=== PATIENT | male | born 1960 | race Hispanic/Latino ===

== ENCOUNTER 2019-10-12 19:10 | Emergency (ER) | payer OTHER ==
[~2019-10-12] VITALS: Ht 167.6 cm; Wt 117.9 kg
[~2019-10-12 19:10] MED LIST: DIOVAN HCT 1601 EACH PO; GABAPENTIN100 MG; NAPROXEN250 MG PO
--- OUTSIDE RECORDS SUMMARY | 2019-10-12 19:13 | XMS REPORT ---
[facility] Unknown Phone Unavailable Care Team Providers Care Label Tacker Name Role Phone RENETTA BORJAS Unavailable Unavailable Payers Payer Name Policy Type Policy Number Effective Date Expiration Date Problems This patient has no known problems. Allergies, Adverse Reactions, Alerts Allergy Name Allergy Type Status Severity Reaction(s) Onset Date Inactive Date Treating Clinician Comments No Known Allergies DA Active U 2019-07-20 00:00:00 ANTIBIOTIC DA Active [facility] 2019-07-20 00:00:00 No Known Allergies DA Active U 2016-11-05 00:00:00 Medications This patient has no known medications. Encounters Start Date/Time End Date/Time Encounter Type Admission Type Attending [facility] Care Department Encounter ID 2019-07-21 00:00:00 2019-07-21 00:00:00 Outpatient [facility] [id number] 2019-07-21 00:00:00 2019-07-21 00:00:00 Outpatient [facility] [id number] 2019-06-15 14:08:20 2019-06-15 14:08:20 Outpatient [facility] [id number] 2019 13:09:14 2019 13:09:14 Outpatient [facility] [id number] 2019-04-19 00:00:00 2019-04-19 00:00:00 Outpatient [facility] [id number] 2019-03-24 12:53:57 2019-03-24 12:53:57 Outpatient [facility] [id number] 2019-03-07 09:44:21 2019-03-07 09:44:21 Outpatient [facility] [id number] 2019-02-18 11:02:01 2019-02-18 11:02:01 Outpatient [facility] [id number] 2019-01-27 13:12:23 2019-01-27 13:12:23 Outpatient [facility] [id number] 2018-12-09 11:51:06 2018-12-09 11:51:06 Outpatient [facility] [id number] 2018-12-09 10:52:40 2018-12-09 10:52:40 Outpatient [facility] [id number] 2018-12-09 09:37:40 2018-12-09 09:37:40 Outpatient [facility] [id number] 2018-11-18 13:22:40 2018-11-18 13:22:40 Outpatient [facility] [id number] 2018-10-27 00:00:00 2018-10-27 00:00:00 Outpatient [facility] [id number] 2018-10-25 12:56:20 2018-10-25 12:56:20 Outpatient [facility] [id number] 2018-10-25 09:34:35 2018-10-25 09:34:35 Outpatient [facility] [id number] 2018-10-22 00:00:00 2018-10-22 00:00:00 Outpatient [facility] [id number] 2018-10-15 09:14:43 2018-10-15 09:14:43 Outpatient [facility] [id number] 2018-10-15 08:21:56 2018-10-15 08:21:56 Outpatient [facility] [id number] 2018-07-20 00:00:00 2018-07-20 00:00:00 Outpatient [facility] [id number] 2018-06-29 00:00:00 2018-06-29 00:00:00 Outpatient [facility] [id number] 2018-06-23 13:08:47 2018-06-23 13:08:47 Outpatient [facility] [id number] 2018-06-01 13:48:07 2018-06-01 13:48:07 Outpatient [facility] [id number] 2018-05-07 00:00:00 2018-05-07 00:00:00 Outpatient [facility] [id number] 2018-04-06 15:01:27 2018-04-06 15:01:27 Outpatient [facility] [id number] 2018-03-01 15:41:05 2018-03-01 15:41:05 Outpatient [facility] [id number] 2018-01-21 00:00:00 2018-01-21 00:00:00 Outpatient [facility] [id number] 2018-01-12 15:24:27 2018-01-12 15:24:27 Outpatient [facility] [id number] 2017-12-02 14:53:34 2017-12-02 14:53:34 Outpatient [facility] [id number] 2017-12-02 11:36:56 2017-12-02 11:36:56 Outpatient [facility] [id number] 2017-12-01 15:21:10 2017-12-01 15:21:10 Outpatient [facility] [id number] 2017-11-02 10:16:35 2017-11-02 10:16:35 Outpatient [facility] [id number] 2017-11-02 10:07:31 2017-11-02 10:07:31 Outpatient [facility] [id number] 2017-10-29 15:17:09 2017-10-29 15:17:09 Outpatient [facility] [id number] 2017-10-20 11:55:53 2017-10-20 11:55:53 Outpatient [facility] [id number] 2017-09-09 08:07:10 2017-09-09 08:07:10 Outpatient [facility] [id number] 2017-08-18 14:58:37 2017-08-18 14:58:37 Outpatient [facility] [id number] 2017-07-30 07:41:34 2017-07-30 07:41:34 Outpatient [facility] [id number] 2017-07-21 13:02:10 2017-07-21 13:02:10 Outpatient [facility] [id number] 2017-07-16 08:50:05 2017-07-16 08:50:05 Outpatient [facility] [id number] 2017-07-16 00:00:00 2017-07-16 00:00:00 Outpatient [facility] [id number] 2017-07-15 15:33:33 2017-07-15 15:33:33 Outpatient [facility] [id number] 2017-06-30 00:00:00 2017-06-30 00:00:00 Outpatient [facility] [id number] 2017-06-18 00:00:00 2017-06-18 00:00:00 Outpatient [facility] [id number] 2017-06-17 00:00:00 2017-06-17 00:00:00 Outpatient [facility] [id number] 2017 07:47:41 2017 07:47:41 Outpatient [facility] [id number] 2017 00:00:00 2017 00:00:00 Outpatient [facility] [id number] 2017-04-28 10:37:05 2017-04-28 10:37:05 Outpatient [facility] [id number] 2017-04-17 09:23:17 2017-04-17 09:23:17 Outpatient [facility] [id number] 2017-04-09 00:00:00 2017-04-09 00:00:00 Outpatient [facility] [id number] 2017-04-08 00:00:00 2017-04-08 00:00:00 Outpatient [facility] [id number] 2017-03-18 00:00:00 2017-03-18 00:00:00 Outpatient [facility] [id number] 2017-03-03 12:01:11 2017-03-03 12:01:11 Outpatient [facility] [id number] 2017-03-03 10:55:52 2017-03-03 10:55:52 Outpatient [facility] [id number] 2017-01-29 13:52:18 2017-01-29 13:52:18 Outpatient [facility] [id number] 2017-01-22 13:19:03 2017-01-22 13:19:03 Outpatient [facility] [id number] 2017-01-21 09:55:36 2017-01-21 09:55:36 Outpatient [facility] [id number] 2017-01-13 15:07:06 2017-01-13 15:07:06 Emergency [facility] [id number] Results Test Description Test Time Test Comments Text Results Atomic Results Result Comments GLUBED 2019-06-26 13:03:00 GLUBED (test code=GLUBED) 145 mg/dL 74-106 Performed by certified tool grinder operator surface at [facility] [id number] 06:05:00* Test Item Value Reference Range Comments GLUBED (test code=GLUBED) 138 mg/dL 74-106 Performed by certified tool grinder operator surface at [facility] BASIC METABOLIC [id number] 02:47:00* Test Item Value Reference Range Comments SODIUM (test code=NA) 143 mmol/L 136-145 POTASSIUM (test code=K) 3.5 mmol/L 3.5-5.1 CHLORIDE (test code=CL) 105.0 mmol/L 98-107 CARBON DIOXIDE (test code=CO2) 31.0 mmol/L 21-32 ANION GAP (test code=GAP) 10.5 10-20 GLUCOSE (test code=GLU) 127 mg/dL 74-106 BLOOD UREA NITROGEN (test code=BUN) 16 mg/dL 7-18 GLOMERULAR FILTRATION RATE (test code=GFR) > 60 mL/min >=60 Estimated GFR by using Modified MDRD formula.Chronic kidney disease is defined as either kidney damageor GFR <60 mL/min/1.73 m2 for >3 months. CREATININE (test code=CREAT) 0.90 mg/dL 0.7-1.3 BUN/CREATININE RATIO (test code=BUN/CREA) 17.1 10-20 CALCIUM (test code=CA) 9.0 mg/dL 8.5-10.1 BASIC METABOLIC [id number] 02:44:00* Test Item Value Reference Range Comments SODIUM (test code=NA) 143 mmol/L 136-145 POTASSIUM (test code=K) 3.5 mmol/L 3.5-5.1 CHLORIDE (test code=CL) 105.0 mmol/L 98-107 CARBON DIOXIDE (test code=CO2) mmol/L 21-32 ANION GAP (test code=GAP) 10-20 GLUCOSE (test code=GLU) mg/dL 74-106 BLOOD UREA NITROGEN (test code=BUN) mg/dL 7-18 GLOMERULAR FILTRATION RATE (test code=GFR) mL/min >=60 CREATININE (test code=CREAT) mg/dL 0.7-1.3 BUN/CREATININE RATIO (test code=BUN/CREA) 10-20 CALCIUM (test code=CA) mg/dL 8.5-10.1 CBC W/AUTO [id number] 02:38:00* Test Item Value Reference Range Comments WHITE BLOOD CELL (test code=WBC) 11.0 K/mm3 4.5-12.5 RED BLOOD CELL (test code=RBC) 4.87 mill/mm3 4.0-5.8 HEMOGLOBIN (test code=HGB) 13.9 gram/dL 13.0-17.5 HEMATOCRIT (test code=HCT) 45.4 % 42.0-52.0 MEAN CELL VOLUME (test code=MCV) 93.2 fL 80-98 MEAN CELL HGB (test code=MCH) 28.5 picogram 27.0-33.0 MEAN CELL HGB CONCETRATION (test code=MCHC) 30.6 gram/dL 33.0-36.0 RED CELL DISTRIBUTION WIDTH (test code=RDW) 13.8 % 11.6-16.2 RED CELL DISTRIBUTION WIDTH SD (test code=RDW-SD) 47.5 fL 37.0-51.0 PLATELET COUNT (test code=PLT) 251 K/mm3 150-450 MEAN PLATELET VOLUME (test code=MPV) 11.1 fL 6.7-11.0 NEUTROPHIL % (test code=NT%) 66.0 % 39.0-69.0 IMMATURE GRANULOCYTE % (test code=IG%) 0.5 % 0.0-5.0 LYMPHOCYTE % (test code=LY%) 24.6 % 25.0-55.0 MONOCYTE % (test code=MO%) 5.8 % 0.0-10.0 EOSINOPHIL % (test code=EO%) 2.7 % 0.0-5.0 BASOPHIL % (test code=BA%) 0.4 % 0.0-1.0 NUCLEATED RBC % (test code=NRBC%) 0.0 % 0-0 NEUTROPHIL # (test code=NT#) 7.27 K/mm3 1.8-7.7 IMMATURE GRANULOCYTE # (test code=IG#) 0.05 x10 3/uL 0-0.03 LYMPHOCYTE # (test code=LY#) 2.71 K/mm3 1.0-5.0 MONOCYTE # (test code=MO#) 0.64 K/mm3 0-0.8 EOSINOPHIL # (test code=EO#) 0.30 K/mm3 0.0-0.5 BASOPHIL # (test code=BA#) 0.04 K/mm3 0.0-0.2 NUCLEATED RBC # (test code=NRBC#) 0.00 K/mm3 0.0-0.1 MANUAL DIFF REQUIRED (test code=MDIFF) NO CBC W/AUTO [id number] 02:37:00* Test Item Value Reference Range Comments WHITE BLOOD CELL (test code=WBC) K/mm3 4.5-12.5 RED BLOOD CELL (test code=RBC) mill/mm3 4.0-5.8 HEMOGLOBIN (test code=HGB) 13.9 gram/dL 13.0-17.5 HEMATOCRIT (test code=HCT) 45.4 % 42.0-52.0 MEAN CELL VOLUME (test code=MCV) fL 80-98 MEAN CELL HGB (test code=MCH) picogram 27.0-33.0 MEAN CELL HGB CONCETRATION (test code=MCHC) gram/dL 33.0-36.0 RED CELL DISTRIBUTION WIDTH (test code=RDW) % 11.6-16.2 RED CELL DISTRIBUTION WIDTH SD (test code=RDW-SD) fL 37.0-51.0 PLATELET COUNT (test code=PLT) K/mm3 150-450 MEAN PLATELET VOLUME (test code=MPV) fL 6.7-11.0 NEUTROPHIL % (test code=NT%) % 39.0-69.0 IMMATURE GRANULOCYTE % (test code=IG%) % 0.0-5.0 LYMPHOCYTE % (test code=LY%) % 25.0-55.0 MONOCYTE % (test code=MO%) % 0.0-10.0 EOSINOPHIL % (test code=EO%) % 0.0-5.0 BASOPHIL % (test code=BA%) % 0.0-1.0 NEUTROPHIL # (test code=NT#) K/mm3 1.8-7.7 LYMPHOCYTE # (test code=LY#) K/mm3 1.0-5.0 MONOCYTE # (test code=MO#) K/mm3 0-0.8 EOSINOPHIL # (test code=EO#) K/mm3 0.0-0.5 BASOPHIL # (test code=BA#) K/mm3 0.0-0.2 [id number] 21:08:00* Test Item Value Reference Range Comments GLUBED (test code=GLUBED) 121 mg/dL 74-106 Performed by certified tool grinder operator surface at [facility] [id number] 17:49:00* Test Item Value Reference Range Comments GLUBED (test code=GLUBED) 102 mg/dL 74-106 Performed by certified tool grinder operator surface at [facility] [id number] 13:41:00* Test Item Value Reference Range Comments GLUBED (test code=GLUBED) 138 mg/dL 74-106 Performed by certified tool grinder operator surface at [facility] LACTIC [id number] 12:28:00* Test Item Value Reference Range Comments LACTIC ACID (test code=LACT) 1.7 mmol/L 0.4-1.9 [id number] 06:42:00* Test Item Value Reference Range Comments GLUBED (test code=GLUBED) 133 mg/dL 74-106 Performed by certified tool grinder operator surface at [facility] BASIC METABOLIC [id number] 02:33:00* Test Item Value Reference Range Comments SODIUM (test code=NA) 145 mmol/L 136-145 POTASSIUM (test code=K) 3.6 mmol/L 3.5-5.1 CHLORIDE (test code=CL) 105.0 mmol/L 98-107 CARBON DIOXIDE (test code=CO2) 33.0 mmol/L 21-32 ANION GAP (test code=GAP) 10.6 10-20 GLUCOSE (test code=GLU) 134 mg/dL 74-106 BLOOD UREA NITROGEN (test code=BUN) 16 mg/dL 7-18 GLOMERULAR FILTRATION RATE (test code=GFR) > 60 mL/min >=60 Estimated GFR by using Modified MDRD formula.Chronic kidney disease is defined as either kidney damageor GFR <60 mL/min/1.73 m2 for >3 months. CREATININE (test code=CREAT) 1.00 mg/dL 0.7-1.3 BUN/CREATININE RATIO (test code=BUN/CREA) 16.1 10-20 CALCIUM (test code=CA) 8.7 mg/dL 8.5-10.1 CBC W/AUTO [id number] 01:52:00* Test Item Value Reference Range Comments WHITE BLOOD CELL (test code=WBC) 10.7 K/mm3 4.5-12.5 RED BLOOD CELL (test code=RBC) 4.92 mill/mm3 4.0-5.8 HEMOGLOBIN (test code=HGB) 14.2 gram/dL 13.0-17.5 HEMATOCRIT (test code=HCT) 45.1 % 42.0-52.0 MEAN CELL VOLUME (test code=MCV) 91.7 fL 80-98 MEAN CELL HGB (test code=MCH) 28.9 picogram 27.0-33.0 MEAN CELL HGB CONCETRATION (test code=MCHC) 31.5 gram/dL 33.0-36.0 RED CELL DISTRIBUTION WIDTH (test code=RDW) 14.1 % 11.6-16.2 RED CELL DISTRIBUTION WIDTH SD (test code=RDW-SD) 47.6 fL 37.0-51.0 PLATELET COUNT (test code=PLT) 255 K/mm3 150-450 MEAN PLATELET VOLUME (test code=MPV) 11.1 fL 6.7-11.0 NEUTROPHIL % (test code=NT%) 63.0 % 39.0-69.0 IMMATURE GRANULOCYTE % (test code=IG%) 0.5 % 0.0-5.0 LYMPHOCYTE % (test code=LY%) 25.8 % 25.0-55.0 MONOCYTE % (test code=MO%) 8.2 % 0.0-10.0 EOSINOPHIL % (test code=EO%) 2.1 % 0.0-5.0 BASOPHIL % (test code=BA%) 0.4 % 0.0-1.0 NUCLEATED RBC % (test code=NRBC%) 0.0 % 0-0 NEUTROPHIL # (test code=NT#) 6.76 K/mm3 1.8-7.7 IMMATURE GRANULOCYTE # (test code=IG#) 0.05 x10 3/uL 0-0.03 LYMPHOCYTE # (test code=LY#) 2.77 K/mm3 1.0-5.0 MONOCYTE # (test code=MO#) 0.88 K/mm3 0-0.8 EOSINOPHIL # (test code=EO#) 0.22 K/mm3 0.0-0.5 BASOPHIL # (test code=BA#) 0.04 K/mm3 0.0-0.2 NUCLEATED RBC # (test code=NRBC#) 0.00 K/mm3 0.0-0.1 MANUAL DIFF REQUIRED (test code=MDIFF) NO [id number] 21:32:00* Test Item Value Reference Range Comments GLUBED (test code=GLUBED) 198 mg/dL 74-106 Performed by certified tool grinder operator surface at [facility] LACTIC [id number] 19:29:00* Test Item Value Reference Range Comments LACTIC ACID (test code=LACT) 3.1 mmol/L 0.4-1.9 Results called to [id number] by [email or web address] 06/24/19 1929Critical results verified and read back by Nurse? Y [id number] 19:15:00* Test Item Value Reference Range Comments GLUBED (test code=GLUBED) 229 mg/dL 74-106 Performed by certified tool grinder operator surface at [facility] LACTIC [id number] 17:06:00* Test Item Value Reference Range Comments LACTIC ACID (test code=LACT) 2.7 mmol/L 0.4-1.9 Results called to [id number] by [email or web address] 06/24/19 1706Critical results verified and read back by Nurse? Y [id number] 08:06:00* Test Item Value Reference Range Comments GLUBED (test code=GLUBED) 129 mg/dL 74-106 Performed by certified tool grinder operator surface at [facility] COMPREHENSIVE METABOLIC [id number] 03:57:00* Test Item Value Reference Range Comments SODIUM (test code=NA) 141 mmol/L 136-145 POTASSIUM (test code=K) 3.7 mmol/L 3.5-5.1 CHLORIDE (test code=CL) 103.0 mmol/L 98-107 CARBON DIOXIDE (test code=CO2) 32.0 mmol/L 21-32 ANION GAP (test code=GAP) 9.7 10-20 GLUCOSE (test code=GLU) 124 mg/dL 74-106 BLOOD UREA NITROGEN (test code=BUN) 21 mg/dL 7-18 GLOMERULAR FILTRATION RATE (test code=GFR) > 60 mL/min >=60 Estimated GFR by using Modified MDRD formula.Chronic kidney disease is defined as either kidney damageor GFR <60 mL/min/1.73 m2 for >3 months. CREATININE (test code=CREAT) 1.00 mg/dL 0.7-1.3 BUN/CREATININE RATIO (test code=BUN/CREA) 21.0 10-20 TOTAL PROTEIN (test code=PROT) 7.2 gram/dL 6.4-8.2 ALBUMIN (test code=ALB) 3.1 g/dL 3.4-5.0 GLOBULIN (test code=GLOB) 4.1 gram/dL 2.7-4.2 ALBUMIN/GLOBULIN RATIO (test code=A/G) 0.8 0.75-1.50 CALCIUM (test code=CA) 8.9 mg/dL 8.5-10.1 BILIRUBIN TOTAL (test code=BILT) 0.40 mg/dL 0.0-1.0 SGOT/AST (test code=AST) 36 IUnit/L 15-37 SGPT/ALT (test code=ALT) 52 IUnit/L 12-78 ALKALINE PHOSPHATASE TOTAL (test code=ALKP) 78 IUnit/L 45-117 Note change in reference range due to change in reagent. [id number] 03:45:00* Test Item Value Reference Range Comments MAGNESIUM (test code=MAG) 2.1 mg/dL 1.8-2.4 COMPREHENSIVE METABOLIC [id number] 03:44:00* Test Item Value Reference Range Comments SODIUM (test code=NA) 141 mmol/L 136-145 POTASSIUM (test code=K) 3.7 mmol/L 3.5-5.1 CHLORIDE (test code=CL) 103.0 mmol/L 98-107 CARBON DIOXIDE (test code=CO2) mmol/L 21-32 ANION GAP (test code=GAP) 10-20 GLUCOSE (test code=GLU) mg/dL 74-106 BLOOD UREA NITROGEN (test code=BUN) mg/dL 7-18 GLOMERULAR FILTRATION RATE (test code=GFR) mL/min >=60 CREATININE (test code=CREAT) mg/dL 0.7-1.3 BUN/CREATININE RATIO (test code=BUN/CREA) 10-20 TOTAL PROTEIN (test code=PROT) gram/dL 6.4-8.2 ALBUMIN (test code=ALB) g/dL 3.4-5.0 GLOBULIN (test code=GLOB) gram/dL 2.7-4.2 ALBUMIN/GLOBULIN RATIO (test code=A/G) 0.75-1.50 CALCIUM (test code=CA) mg/dL 8.5-10.1 BILIRUBIN TOTAL (test code=BILT) mg/dL 0.0-1.0 SGOT/AST (test code=AST) IUnit/L 15-37 SGPT/ALT (test code=ALT) IUnit/L 12-78 ALKALINE PHOSPHATASE TOTAL (test code=ALKP) IUnit/L 45-117 CBC W/AUTO [id number] 03:20:00* Test Item Value Reference Range Comments WHITE BLOOD CELL (test code=WBC) 9.2 K/mm3 4.5-12.5 RED BLOOD CELL (test code=RBC) 5.03 mill/mm3 4.0-5.8 HEMOGLOBIN (test code=HGB) 14.7 gram/dL 13.0-17.5 HEMATOCRIT (test code=HCT) 46.2 % 42.0-52.0 MEAN CELL VOLUME (test code=MCV) 91.8 fL 80-98 MEAN CELL HGB (test code=MCH) 29.2 picogram 27.0-33.0 MEAN CELL HGB CONCETRATION (test code=MCHC) 31.8 gram/dL 33.0-36.0 RED CELL DISTRIBUTION WIDTH (test code=RDW) 14.2 % 11.6-16.2 RED CELL DISTRIBUTION WIDTH SD (test code=RDW-SD) 47.6 fL 37.0-51.0 PLATELET COUNT (test code=PLT) 251 K/mm3 150-450 MEAN PLATELET VOLUME (test code=MPV) 11.3 fL 6.7-11.0 NEUTROPHIL % (test code=NT%) 60.6 % 39.0-69.0 IMMATURE GRANULOCYTE % (test code=IG%) 0.5 % 0.0-5.0 LYMPHOCYTE % (test code=LY%) 27.5 % 25.0-55.0 MONOCYTE % (test code=MO%) 7.6 % 0.0-10.0 EOSINOPHIL % (test code=EO%) 3.4 % 0.0-5.0 BASOPHIL % (test code=BA%) 0.4 % 0.0-1.0 NUCLEATED RBC % (test code=NRBC%) 0.0 % 0-0 NEUTROPHIL # (test code=NT#) 5.57 K/mm3 1.8-7.7 IMMATURE GRANULOCYTE # (test code=IG#) 0.05 x10 3/uL 0-0.03 LYMPHOCYTE # (test code=LY#) 2.53 K/mm3 1.0-5.0 MONOCYTE # (test code=MO#) 0.70 K/mm3 0-0.8 EOSINOPHIL # (test code=EO#) 0.31 K/mm3 0.0-0.5 BASOPHIL # (test code=BA#) 0.04 K/mm3 0.0-0.2 NUCLEATED RBC # (test code=NRBC#) 0.00 K/mm3 0.0-0.1 MANUAL DIFF REQUIRED (test code=MDIFF) NO [id number] 20:27:00* Test Item Value Reference Range Comments GLUBED (test code=GLUBED) 243 mg/dL 74-106 Performed by certified tool grinder operator surface at [facility] LACTIC [id number] 19:50:00* Test Item Value Reference Range Comments LACTIC ACID (test code=LACT) 2.6 mmol/L 0.4-1.9 Results called to [id number] by V.[email or web address] 06/23/191947Critical results verified and read back by Nurse? Y [id number] 19:38:00* Test Item Value Reference Range Comments GLYCOSYLATED HEMOGLOBIN (HA1C) (test code=GLYHGB) 7.5 % HbA1 4.8-6.0 ESTIMATED AVERAGE GLUCOSE (test code=EAG) 169 MG/DL BASIC METABOLIC [id number] 11:59:00* Test Item Value Reference Range Comments SODIUM (test code=NA) 142 mmol/L 136-145 POTASSIUM (test code=K) 3.5 mmol/L 3.5-5.1 CHLORIDE (test code=CL) 103.0 mmol/L 98-107 CARBON DIOXIDE (test code=CO2) 35.0 mmol/L 21-32 ANION GAP (test code=GAP) 7.5 10-20 GLUCOSE (test code=GLU) 170 mg/dL 74-106 BLOOD UREA NITROGEN (test code=BUN) 20 mg/dL 7-18 GLOMERULAR FILTRATION RATE (test code=GFR) > 60 mL/min >=60 Estimated GFR by using Modified MDRD formula.Chronic kidney disease is defined as either kidney damageor GFR <60 mL/min/1.73 m2 for >3 months. CREATININE (test code=CREAT) 1.00 mg/dL 0.7-1.3 BUN/CREATININE RATIO (test code=BUN/CREA) 19.4 10-20 CALCIUM (test code=CA) 8.7 mg/dL 8.5-10.1 CBC W/AUTO [id number] 11:09:00* Test Item Value Reference Range Comments WHITE BLOOD CELL (test code=WBC) 10.3 K/mm3 4.5-12.5 RED BLOOD CELL (test code=RBC) 5.03 mill/mm3 4.0-5.8 HEMOGLOBIN (test code=HGB) 14.4 gram/dL 13.0-17.5 HEMATOCRIT (test code=HCT) 47.0 % 42.0-52.0 MEAN CELL VOLUME (test code=MCV) 93.4 fL 80-98 MEAN CELL HGB (test code=MCH) 28.6 picogram 27.0-33.0 MEAN CELL HGB CONCETRATION (test code=MCHC) 30.6 gram/dL 33.0-36.0 RED CELL DISTRIBUTION WIDTH (test code=RDW) 14.3 % 11.6-16.2 RED CELL DISTRIBUTION WIDTH SD (test code=RDW-SD) 48.1 fL 37.0-51.0 PLATELET COUNT (test code=PLT) 255 K/mm3 150-450 MEAN PLATELET VOLUME (test code=MPV) 10.9 fL 6.7-11.0 NEUTROPHIL % (test code=NT%) 67.3 % 39.0-69.0 IMMATURE GRANULOCYTE % (test code=IG%) 0.6 % 0.0-5.0 LYMPHOCYTE % (test code=LY%) 22.8 % 25.0-55.0 MONOCYTE % (test code=MO%) 6.2 % 0.0-10.0 EOSINOPHIL % (test code=EO%) 2.6 % 0.0-5.0 BASOPHIL % (test code=BA%) 0.5 % 0.0-1.0 NUCLEATED RBC % (test code=NRBC%) 0.0 % 0-0 NEUTROPHIL # (test code=NT#) 6.91 K/mm3 1.8-7.7 IMMATURE GRANULOCYTE # (test code=IG#) 0.06 x10 3/uL 0-0.03 LYMPHOCYTE # (test code=LY#) 2.34 K/mm3 1.0-5.0 MONOCYTE # (test code=MO#) 0.64 K/mm3 0-0.8 EOSINOPHIL # (test code=EO#) 0.27 K/mm3 0.0-0.5 BASOPHIL # (test code=BA#) 0.05 K/mm3 0.0-0.2 NUCLEATED RBC # (test code=NRBC#) 0.00 K/mm3 0.0-0.1 MANUAL DIFF REQUIRED (test code=MDIFF) NO CBC W/AUTO [id number] 11:08:00* Test Item Value Reference Range Comments WHITE BLOOD CELL (test code=WBC) K/mm3 4.5-12.5 RED BLOOD CELL (test code=RBC) mill/mm3 4.0-5.8 HEMOGLOBIN (test code=HGB) 14.4 gram/dL 13.0-17.5 HEMATOCRIT (test code=HCT) 47.0 % 42.0-52.0 MEAN CELL VOLUME (test code=MCV) fL 80-98 MEAN CELL HGB (test code=MCH) picogram 27.0-33.0 MEAN CELL HGB CONCETRATION (test code=MCHC) gram/dL 33.0-36.0 RED CELL DISTRIBUTION WIDTH (test code=RDW) % 11.6-16.2 RED CELL DISTRIBUTION WIDTH SD (test code=RDW-SD) fL 37.0-51.0 PLATELET COUNT (test code=PLT) K/mm3 150-450 MEAN PLATELET VOLUME (test code=MPV) fL 6.7-11.0 NEUTROPHIL % (test code=NT%) % 39.0-69.0 IMMATURE GRANULOCYTE % (test code=IG%) % 0.0-5.0 LYMPHOCYTE % (test code=LY%) % 25.0-55.0 MONOCYTE % (test code=MO%) % 0.0-10.0 EOSINOPHIL % (test code=EO%) % 0.0-5.0 BASOPHIL % (test code=BA%) % 0.0-1.0 NEUTROPHIL # (test code=NT#) K/mm3 1.8-7.7 LYMPHOCYTE # (test code=LY#) K/mm3 1.0-5.0 MONOCYTE # (test code=MO#) K/mm3 0-0.8 EOSINOPHIL # (test code=EO#) K/mm3 0.0-0.5 BASOPHIL # (test code=BA#) K/mm3 0.0-0.2 LACTIC [id number] 08:19:00* Test Item Value Reference Range Comments LACTIC ACID (test code=LACT) 2.5 mmol/L 0.4-1.9 Results called to [id number] by [email or web address] 06/22/19 0819Critical results verified and read back by Nurse? Y [id number] 05:20:00* Test Item Value Reference Range Comments TROPONIN-I (test code=TROPI) <0.015 ng/mL 0-0.045 COMMENTS TO [employer]: COLLECT 3 HOURS AFTER PREVIOUS [id number] 03:27:00* Test Item Value Reference Range Comments MAGNESIUM (test code=MAG) 2.0 mg/dL 1.8-2.4 [id number] 02:48:00* Test Item Value Reference Range Comments TROPONIN-I (test code=TROPI) <0.015 ng/mL 0-0.045 COMMENTS TO [employer]: COLLECT 3 HOURS AFTER PREVIOUS SAMPLEB-TYPE NATRIURETIC [id number] 00:49:00* Test Item Value Reference Range Comments B-TYPE NATRIURETIC PEPTIDE (test code=BNP) 129.56 pgram/mL 0-100 LACTIC [id number] 00:31:00* Test Item Value Reference Range Comments LACTIC ACID (test code=LACT) 3.3 mmol/L 0.4-1.9 Results called to [id number] by V.[email or web address] 06/22/19 0031Critical results verified and read back by Nurse? Y LIPID PROFILE (CORONARY RISK)2019-06-21 21:43:00* Test Item Value Reference Range Comments TRIGLYCERIDES (test code=TRIG) 171 mg/dL 20-150 CHOLESTEROL (test code=CHOL) 191 mg/dL 0-200 CHOLESTEROL/HDL RATIO (test code=CHOLHDL) 4.0 RATIO 0-4.9 RISK ASSOCIATED WITH CHOL/HDL RATIOS: Risk Male Female1/2 AVERAGE 3.43 3.27AVERAGE 4.97 4.442X AVERAGE 9.55 7.053X AVERAGE 23.39 11.04 REFERENCE VALUE IS RELATED TO RISK LEVELS ASRECOMMENDED BY THE [facility]. HEART, LUNG, AND BLOOD INST. HDL CHOLESTEROL (test code=HDL) 41 mg/dL 40-60 LIPOPROTEIN LDL (test code=LDL) 136 mg/dL 100-129 RN PERSONNEL, CONTACT PHYSICIAN IMMEDIATELY IF THIS IS A STROKE, AMI OR CAROTID STENOSIS PATIENT WHEN THE LDL >100 (1ST OCCURENCE, THIS ADMISSION) Reference Interval: mg/dL mmol/L Optimal <100 <2.6Near/above optimal 100-129 2.6- 3.3Borderline High 130-159 3.4-4.1High 160-189 4.1-4.9Very High >=190 >=4.9=========This LDL result is a direct measurement.========= THYROID STIMULATING [id number] 21:43:00* Test Item Value Reference Range Comments THYROID STIMULATING HORMONE (test code=TSH) 3.020 uIU/mL 0.36-3.74 TSH REFERENCE RANGES: EUTHYROID: 0.35 - 4.3 mIU/mL HYPO : > 5.5 mIU/mL HYPER : < 0.35 mIU/mL [id number] 21:43:00* Test Item Value Reference Range Comments FERRITIN (test code=CANDY) 113 ng/mL 8-388 LACTIC [id number] 20:19:00* Test Item Value Reference Range Comments LACTIC ACID (test code=LACT) 2.4 mmol/L 0.4-1.9 Results called to [id number] by [email or web address] 06/21/19 2019Critical results verified and read back by Nurse? Y - CTA [id number] 19:09:00 Name: EUNICE ESPINOZA [facility] : 1960 Age/S: 59 / M [address] Unit #: [id number] Loc: [place] [address] Phys: Cirilo Rogers MD Acct: [id number] Dis Date: Status: REG ER PHONE #: [phone] Exam Date: 06/21/2019 1846 FAX #: [phone] Reason: SOB EXAMS: CPT CODE: [id number] CTA CHEST 88586 EXAM: CTA of the chest with contrast; INFORMATION: Cough and shortness of breath; PE? TECHNIQUE AND FINDINGS: CT dose reduction protocol; 2.5 mm scans through the chest during intravenous infusion of contrast material; multiplanar reconstructions; PE protocol; In addition, 3-D angiographic studies were generated on an independent workstation, using volume rendering and maximum intensity projection algorithms. The pulmonary arteries a densely enhancing and are without filling defects. The thoracic aorta is also well enhancing; no evidence of dissection or aneurysm. No hilar or mediastinal adenopathy. No pleural effusion; no pneumothorax. The heart is enlarged. Lung windows show mild patchy groundglass opacities bilaterally. IMPRESSION: 1. No evidence of pulmonary embolism, aortic dissection or other acute cardiothoracic abnormalities. 2. Mild cardiomegaly. 3. Mild groundglass opacities could be due to atelectatic changes or early edema. Location code: [facility] at 1909 Reported and signed by: Amando Ramos M.D. CC: Cirilo Rogers MD Technologist:Marlen BAIN(R); XENIA Vasques CTDI: DLP: Trnscb Date/Time: 06/21/2019 (1908) [email or web address] Orig Print D/T: S: 06/21/2019 (1912) PAGE 1 Signed Report LACTIC [id number] 18:17:00* Test Item Value Reference Range Comments LACTIC ACID (test code=LACT) 2.1 mmol/L 0.4-1.9 Results called to [id number] by [email or web address] 06/21/19 1817Critical results verified and read back by Nurse? Y [id number] 18:02:00* Test Item Value Reference Range Comments D-DIMER (test code=DDIMER) 940.00 ng/mLFEU 0-500 Results called to [id number] by V.[email or web address] 06/21/19 1801Critical results verified and read back by Nurse? YClinical Cut-off value for D-Dimer is 500 ng/mL FEU. Comment: The [employer] D- Dimer assay is intended for use asan aid in the diagnosis of venous thromboembolism (VTE)[deep vein thrombosis (DVT) or pulmonary embolism (PE)].The measurement of D-Dimer should not be used as an aid inthe diagnosis of VTE, in patient with: -Therapeutic dose anticoagulant therapy for >24 hours - Fibrinolytic therapy within previous 7 days -Trauma or surgery within previous 4 weeks -Disseminated malignancies -Aortic aneurysm -Sepsis, severe infections, pneumonia, severe skin infections -Liver cirrhosis - B-TYPE NATRIURETIC [id number] 17:39:00* Test Item Value Reference Range Comments B-TYPE NATRIURETIC PEPTIDE (test code=BNP) 78.51 pgram/mL 0-100 BASIC METABOLIC [id number] 17:32:00* Test Item Value Reference Range Comments SODIUM (test code=NA) 143 mmol/L 136-145 POTASSIUM (test code=K) 3.6 mmol/L 3.5-5.1 CHLORIDE (test code=CL) 107.0 mmol/L 98-107 CARBON DIOXIDE (test code=CO2) 29.0 mmol/L 21-32 ANION GAP (test code=GAP) 10.6 10-20 GLUCOSE (test code=GLU) 141 mg/dL 74-106 BLOOD UREA NITROGEN (test code=BUN) 9 mg/dL 7-18 GLOMERULAR FILTRATION RATE (test code=GFR) > 60 mL/min >=60 Estimated GFR by using Modified MDRD formula.Chronic kidney disease is defined as either kidney damageor GFR <60 mL/min/1.73 m2 for >3 months. CREATININE (test code=CREAT) 1.00 mg/dL 0.7-1.3 BUN/CREATININE RATIO (test code=BUN/CREA) 8.6 10-20 CALCIUM (test code=CA) 8.8 mg/dL 8.5-10.1 [id number] 17:32:00* Test Item Value Reference Range Comments TROPONIN-I (test code=TROPI) 0.024 ng/mL 0-0.045 BASIC METABOLIC [id number] 17:24:00* Test Item Value Reference Range Comments SODIUM (test code=NA) 143 mmol/L 136-145 POTASSIUM (test code=K) 3.6 mmol/L 3.5-5.1 CHLORIDE (test code=CL) 107.0 mmol/L 98-107 CARBON DIOXIDE (test code=CO2) mmol/L 21-32 ANION GAP (test code=GAP) 10-20 GLUCOSE (test code=GLU) mg/dL 74-106 BLOOD UREA NITROGEN (test code=BUN) mg/dL 7-18 GLOMERULAR FILTRATION RATE (test code=GFR) mL/min >=60 CREATININE (test code=CREAT) mg/dL 0.7-1.3 BUN/CREATININE RATIO (test code=BUN/CREA) 10-20 CALCIUM (test code=CA) 8.8 mg/dL 8.5-10.1 [id number] 17:24:00* Test Item Value Reference Range Comments TROPONIN-I (test code=TROPI) ng/mL 0-0.045 - XR CHEST 1 [id number] 17:22:00 FAX: Cirilo Rogers MD Oneco: B St: REG Name: EUNICE BARTH [facility] : [birth year] Age/S: 59/M [address] [facility] Unit #: [id number] Loc: [place] [address] Phys: Cirilo Rogers MD Acct: [id number] Dis Date: Status: REG ER PHONE #: [phone] Exam Date: 06/21/2019 1650 FAX #: [phone] Reason: Shortness of Breath EXAMS: CPT CODE: [id number] XR CHEST 1 V 48573 EXAM: Chest x-ray, one view; IMPRESSION: Cough and shortness of breath; FINDINGS: Lungs are clear; no infiltrates, no edema; no effusions; no pn eumothorax. The heart is slightly enlarged. IMPRESSION : 1. Mild cardiomegaly. 2. No other significant abnormalities. Location code: [facility] at 1722 Reported and signed by: Amando Ramos M.D. CC: Cirilo Rogers MD echnologist: MATTHEW KIM Trnscrd Date /Time/By: 06/21/2019 (480) : By: VenturaGRW Orig Print D/T: S: 019 (3625) PAGE 1 Signed Report CBC W/O [id number] 17:11:00* Test Item Value Reference Range Comments WHITE BLOOD CELL (test code=WBC) 10.5 K/mm3 4.5-12.5 RED BLOOD CELL (test code=RBC) 5.23 mill/mm3 4.0-5.8 HEMOGLOBIN (test code=HGB) 15.1 gram/dL 13.0-17.5 HEMATOCRIT (test code=HCT) 47.9 % 42.0-52.0 MEAN CELL VOLUME (test code=MCV) 91.6 fL 80-98 MEAN CELL HGB (test code=MCH) 28.9 picogram 27.0-33.0 MEAN CELL HGB CONCETRATION (test code=MCHC) 31.5 gram/dL 33.0-36.0 RED CELL DISTRIBUTION WIDTH (test code=RDW) 13.6 % 11.6-16.2 PLATELET COUNT (test code=PLT) 249 K/mm3 150-450 MEAN PLATELET VOLUME (test code=MPV) 10.8 fL 6.7-11.0 CBC W/O [id number] 17:09:00* Test Item Value Reference Range Comments WHITE BLOOD CELL (test code=WBC) K/mm3 4.5-12.5 RED BLOOD CELL (test code=RBC) mill/mm3 4.0-5.8 HEMOGLOBIN (test code=HGB) 15.1 gram/dL 13.0-17.5 HEMATOCRIT (test code=HCT) 47.9 % 42.0-52.0 MEAN CELL VOLUME (test code=MCV) fL 80-98 MEAN CELL HGB (test code=MCH) picogram 27.0-33.0 MEAN CELL HGB CONCETRATION (test code=MCHC) gram/dL 33.0-36.0 RED CELL DISTRIBUTION WIDTH (test code=RDW) % 11.6-16.2 PLATELET COUNT (test code=PLT) K/mm3 150-450 MEAN PLATELET VOLUME (test code=MPV) fL 6.7-11.0 CHEST SINGLE (PORTABLE) [place] [address] Patient Name: EUNICE ESPINOZA MR #: [id number] : 1960 Age/Sex: 56/M Req #: [id number] Adm Physician: Ordered by: JANEL CHAVIRA Report #: [id number] Location: ER Room/Bed: Procedure: [id number] DX/CHEST SINGLE (PORTABLE) Exam Date: 04/14/17 Exam Time: 1650 REPORT STAT US: Signed PROCEDURE: CHEST SINGLE (PORTABLE) COMPARISON: None. INDICATIO NS: CHEST PAIN FINDINGS: LUNGS: No consolidations or edema. PLEURA: No effusions or pneumothorax. HEART T MEDIASTINUM: The hea rt is within normal size-limits. BONES T SOFT TISSUES: No acute findi ngs. CONCLUSION: No acute thoracic abnormality. Dictat ed by: Ioan Pereira M.D. on 04/14/2017 at 17:10 Electronically approved by : Iona Pereira M.D. on 04/14/2017 at 17:10 Dictated By: IONA PELAYO MD 09 Transcribed By: YURI on 04/14/171709 COPY TO: JANEL CHAVIRA
--- NOTE | 2019-10-12 20:30 | NUR ---
{null, PT UP TO RESTROOM WITHOUT DIFF. }
[2019-10-12] MEDS ORDERED: CLONIDINE HCL 0.1 MG TAB ONE (20:40)
[2019-10-12] MEDS ORDERED: CLONIDINE HCL 0.2 MG TAB PO ONE (20:45)
[2019-10-12] MEDS ORDERED: CLONIDINE HCL 0.1 MG TAB PO ONE (20:45)
[2019-10-12] MEDS ORDERED: CARVEDILOL3.125 MG PO (22:25)
[2019-10-12] MEDS ORDERED: PANTOPRAZOLE SO40 MG PO (22:50)
[2019-10-12 23:12] VITALS: BP 155/88
== END 2019-10-12 23:00 | disposition home or self-care (01) ==
LOC: FSED 19:10
DX: I10 Essential (primary) hypertension (principal); I50.22 Chronic systolic (congestive) heart failure; K21.9 Gastro-esophageal reflux disease without esophagitis
CPT/HCPCS: 80053; 81003; 82553; 83880; 84484; 85025; 99283